=== PATIENT | female | born 1990 | race African-American/Black ===

== ENCOUNTER 2018-05-21 03:42 | Emergency (ER) | payer BC, MEDICAID ==
--- NOTE | 2018-05-21 04:07 | ER Document Report ---
ED GI/ - General Chief Complaint: Vaginal Itching Stated Complaint: VAGINAL ISSUE Time Seen by Provider: 05/21/18 03:59 Primary Care Provider: DALLAS GOLD MD [ACTIVE STAFF] - Follow up as needed Mode of Arrival: Ambulatory Information source: Patient Notes: Patient is a 27-year-old female who presents the emergency department with a vaginal discharge that has been ongoing for approximately 1 week. Patient reports the discharge is a thick white and causes her to itch. Patient reports possible STD exposure. Patient states she tried getting an appointment with her primary but it was going to be another month until they could see her. Patient denies any pelvic or abdominal pain. TRAVEL OUTSIDE OF THE [place] IN LAST 30 DAYS: No - Related Data Allergies/Adverse Reactions: No Known Allergies Allergy (Verified 06/13/15 17:06) Past Medical History - General Information source: Patient - Social History Smoking Status: Never Smoker Frequency of alcohol use: None Drug Abuse: None Family History: Reviewed & Not Pertinent Renal/ Medical History: Reports: Hx Ectopic Past Surgical History: Reports: Hx Gynecologic Surgery - left fallopian tube removed - Immunizations Hx Diphtheria, Pertussis, Tetanus Vaccination: Yes Review of Systems - Review of Systems Constitutional: No symptoms reported EENT: No symptoms reported Cardiovascular: No symptoms reported Respiratory: No symptoms reported Gastrointestinal: No symptoms reported Genitourinary: No symptoms reported Female Genitourinary: Vaginal discharge, Vaginal odor Musculoskeletal: No symptoms reported Skin: No symptoms reported Hematologic/Lymphatic: No symptoms reported Neurological/Psychological: No symptoms reported Physical Exam - Vital signs Vitals: Temp Pulse Resp BP Pulse Ox 99.6 F 73 16 116/73 100 05/21/18 03:43 05/21/18 03:43 05/21/18 03:43 05/21/18 03:43 05/21/18 03:43 - Notes Notes: PHYSICAL EXAMINATION: GENERAL: Well-appearing, well-nourished and in no acute distress. HEAD: Atraumatic, normocephalic. EYES: Pupils equal round and reactive to light, extraocular movements intact, conjunctiva are normal. ENT: Nares patent, oropharynx clear without exudates. Moist mucous membranes. NECK: Normal range of motion, supple without lymphadenopathy LUNGS: Breath sounds clear to auscultation bilaterally and equal. No wheezes rales or rhonchi. HEART: Regular rate and rhythm without murmurs ABDOMEN: Soft, nontender, nondistended abdomen. No guarding, no rebound. No masses appreciated. Female : Normal external genitalia, speculum exam reveals whitish cannon thin vaginal discharge from the cervix. No cervical motion tenderness or adnexal tenderness. Musculoskeletal: Normal range of motion, no pitting or edema. No cyanosis. NEUROLOGICAL: Cranial nerves grossly intact. Normal speech, normal gait. Normal sensory, motor exams PSYCH: Normal mood, normal affect. SKIN: Warm, Dry, normal turgor, no rashes or lesions noted. Course - Re-evaluation Re-evalutation: 3+ bacteria noted on wet mount, positive for trichomonas. Chlamydia and gonorrhea are pending. Patient will be placed on p.o. metronidazole for 7 days. Patient will also be given dose of IM Rocephin and p.o. azithromycin here in the emergency department. Discussed follow-up with health department with patient. Patient verbalizes understanding of same. - Vital Signs Vital signs: Temp Pulse Resp BP Pulse Ox 99.6 F 73 16 116/73 100 05/21/18 03:43 05/21/18 03:43 05/21/18 03:43 05/21/18 03:43 05/21/18 03:43 Discharge - Discharge Clinical Impression: infection, trichomonal Condition: Stable Disposition: HOME, SELF-CARE Additional Instructions: He was treated today for a trichomonas infection. You are also treated prophylactically for both chlamydia and gonorrhea. Please notify any partners that you have to go to the health department for treatment for trichomonas. No unprotected sexual intercourse for 7 days. Prescriptions: Metronidazole [Flagyl 500 mg Tablet] 500 mg PO BID #14 tablet Referrals: DALLAS GOLD MD [ACTIVE STAFF] - Follow up as needed
[2018-05-21] MEDS ORDERED: LIDOCAINE 1% INJ-PF (10 MG/ML) 30 ML SDV IM ONE (04:34)
[2018-05-21] MEDS ORDERED: CEFTRIAXONE INJ 250 MG VIAL IM ONE (04:34)
[2018-05-21] MEDS ORDERED: AZITHROMYCIN 250 MG TABLET PO ONE (04:35)
[2018-05-21 04:49] LABS: BACTERIA (WET MOUNT) 4+ BACTERIA SEEN; RBCS (WET MOUNT) 3+ RBCS SEEN; T.VAGINALIS (WET MOUNT) TRICHOMONAS SEEN; WBCS (WET MOUNT) 3+ WBCS SEEN; YEAST (WET MOUNT) NO YEAST SEEN
[2018-05-21] MEDS ORDERED: METRONIDAZOLE 500 MG TABLET PO ONE (05:34)
[2018-05-21 06:16] LABS: CHLAM PCR NOT DETECTED (NOT DETECT); GON PCR NOT DETECTED (NOT DETECT)
[2018-05-21 06:34] VITALS: BP 108/74
== END 2018-05-21 05:55 | disposition home or self-care (01) ==
LOC: ER 03:42
DX: A59.00 Urogenital trichomoniasis, unspecified (principal)
CPT/HCPCS: 99283; 96372; 87210; 87491; 87591; J3490; J0696

== ENCOUNTER 2018-09-05 04:19 | Emergency (ER) | payer BC ==
[2018-09-05 04:51] VITALS: BP 150/110
== END 2018-09-05 06:02 | disposition left against medical advice (07) ==
LOC: ER 04:19
DX: Z53.21 Procedure and treatment not carried out due to patient leaving prior to being seen by health care provider (principal)

== ENCOUNTER 2018-11-13 08:16 | Emergency (ER) | payer BC ==
--- NOTE | 2018-11-13 09:14 | ER Document Report ---
ED General - General Chief Complaint: Abdominal Cramping Stated Complaint: ABDOMINAL PAIN Time Seen by Provider: 11/13/18 08:48 Primary Care Provider: HERIBERTO LOBO MD [Primary Care Provider] - Follow up in 1 week Mode of Arrival: Ambulatory Information source: Patient Notes: Patient presents to the emergency department with complaints of abdominal pain left lower quad for the past 4 days. Reports she has had bright red blood in her BM 3 times in the past 4 days. Reports the stools were hard. Reports she usually only has a bowel movement once a week. Reports this never happened to her before. Denies history of hemorrhoids. Patient denies pain with void. Denies urinary frequency. Reports vaginal discharge. Does not think she has an STD. Reports last time she had sex was 1 month ago with one partner no protection. Denies fever vomiting diarrhea. TRAVEL OUTSIDE OF THE [place] IN LAST 30 DAYS: No - HPI Onset: Other Onset/Duration: Persistent Quality of pain: Cramping Severity: Moderate Pain Level: 3 Associated symptoms: None Exacerbated by: Denies Relieved by: Denies Similar symptoms previously: No Recently seen / treated by doctor: No - Related Data Allergies/Adverse Reactions: No Known Allergies Allergy (Verified 11/13/18 08:17) Past Medical History - General Information source: Patient Last Menstrual Period: 11/06/18 - Social History Smoking Status: Unknown if Ever Smoked Cigarette use (# per day): No Frequency of alcohol use: None Drug Abuse: None Lives with: Family Family History: Reviewed & Not Pertinent Patient has suicidal ideation: No Patient has homicidal ideation: No Renal/ Medical History: Reports: Hx Ectopic . Denies: Hx Peritoneal Dialysis Past Surgical History: Reports: Hx Gynecologic Surgery - left fallopian tube re moved - Immunizations Hx Diphtheria, Pertussis, Tetanus Vaccination: Yes Review of Systems - Review of Systems Notes: Review HPI for review of systems., All other systems negative Physical Exam - Vital signs Vitals: Temp Pulse Resp BP Pulse Ox 98.4 F 88 16 112/79 100 11/13/18 08:24 11/13/18 08:24 11/13/18 08:24 11/13/18 08:24 11/13/18 08:24 - Notes Notes: PHYSICAL EXAMINATION: GENERAL: Well-appearing and in no acute distress HEAD: Atraumatic, normocephalic. EYES: Pupils equal round , extraocular movements intact, sclera anicteric, conjunctiva are normal. ENT: nares patent, oropharynx clear without exudates. Moist mucous membranes. NECK: Normal range of motion, supple without lymphadenopathy LUNGS: CTAB and equal. No wheezes rales or rhonchi. HEART: Regular rate and rhythm without murmurs ABDOMEN: Soft, no tenderness. No guarding, no rebound EXTREMITIES: Normal range of motion, no pitting edema. NEUROLOGICAL: Cranial nerves grossly intact. Normal sensory/motor exams. PSYCH: Normal mood, normal affect. SKIN: Warm, Dry, normal turgor, no rashes or lesions noted - Rectal Tenderness: Yes Stool: Heme negative Hemorrhoids: External - Genitourinary External exam: Normal Speculum exam: Vaginal discharge - Whitish Vaginal bleeding: None Bimanuel exam: Normal. No: Cervical motion tender, Adnexal tenderness Course - Re-evaluation Re-evalutation: 11/13/18 11:03 Labs unremarkable urine has leukocytes with some WBCs. Patient will be treated for UTI. Wet mount returns with BV. Patient was treated with Flagyl. Patient was instructed on STD cultures pending. She reports she would rather be called with results. She does not want to wait and she does not want prophylactic treatment. 11/13/18 20:11 I attempted to contact patient to notify her of positive chlamydia. Patient has a voicemail that has not been set up and she is not answering. Will attempt to contact patient again tomorrow. 11/13/18 09:53 11/13/18 09:53 MCV 86 fl (80-97) 11/13/18 09:53 MCH 28.9 pg (27.0-33.4) 11/13/18 09:53 MCHC 33.5 g/dL (32.0-36.0) 11/13/18 09:53 RDW 14.6 % (11.5-14.0) H 11/13/18 09:53 Seg Neutrophils % 53.9 % (42-78) 11/13/18 09:53 Lymphocytes % 37.6 % (13-45) 11/13/18 09:53 Monocytes % 6.3 % (3-13) 11/13/18 09:53 Eosinophils % 1.8 % (0-6) 11/13/18 09:53 Basophils % 0.4 % (0-2) 11/13/18 09:53 Absolute Neutrophils 3.1 10^3/uL (1.7-8.2) 11/13/18 09:53 Absolute Lymphocytes 2.2 10^3/uL (0.5-4.7) 11/13/18 09:53 Absolute Monocytes 0.4 10^3/uL (0.1-1.4) 11/13/18 09:53 Absolute Eosinophils 0.1 10^3/uL (0.0-0.6) 11/13/18 09:53 Absolute Basophils 0.0 10^3/uL (0.0-0.2) 11/13/18 09:53 Chloride 107 mmol/L (98-107) 11/13/18 09:53 Carbon Dioxide 27 mmol/L (22-30) 11/13/18 09:53 Anion Gap 9 (5-19) 11/13/18 09:53 Est GFR ( Amer) > 60 (>60) 11/13/18 09:53 Est GFR (Non-Af Amer) > 60 (>60) 11/13/18 09:53 Glucose 105 mg/dL (75-110) 11/13/18 09:53 Calcium 11.6 mg/dL (8.4-10.2) H 11/13/18 09:53 Total Bilirubin 0.4 mg/dL (0.2-1.3) 11/13/18 09:53 AST 24 U/L (14-36) 11/13/18 09:53 ALT 15 U/L (9-52) 11/13/18 09:53 Alkaline Phosphatase 64 U/L (38-126) 11/13/18 09:53 Total Protein 7.7 g/dL (6.3-8.2) 11/13/18 09:53 Albumin 4.4 g/dL (3.5-5.0) 11/13/18 09:53 Serum HCG, Qual NEGATIVE (NEGATIVE) 11/13/18 09:53 Urine Color YELLOW 11/13/18 09:40 Urine Appearance SLIGHTLY-CLOUDY 11/13/18 09:40 Urine pH 5.0 (5.0-9.0) 11/13/18 09:40 Ur Specific [place] 1.017 11/13/18 09:40 Urine Protein NEGATIVE mg/dL (NEGATIVE) 11/13/18 09:40 Urine Glucose (UA) NEGATIVE mg/dL (NEGATIVE) 11/13/18 09:40 Urine Ketones NEGATIVE mg/dL (NEGATIVE) 11/13/18 09:40 Urine Blood SMALL (NEGATIVE) H 11/13/18 09:40 Urine Nitrite NEGATIVE (NEGATIVE) 11/13/18 09:40 Ur Leukocyte Esterase LARGE (NEGATIVE) H 11/13/18 09:40 Urine WBC (Auto) 73 /HPF 11/13/18 09:40 Urine RBC (Auto) 11 /HPF 11/13/18 09:40 11/14/18 09:25 Patient contacted and made aware of positive chlamydia. She requested medication be called into pharmacy. [facility] on [address] contacted azithromycin 1 g p.o. ordered. - Vital Signs Vital signs: Temp Pulse Resp BP Pulse Ox 98.7 F 71 16 104/73 100 11/13/18 11:30 11/13/18 11:30 11/13/18 08:24 11/13/18 11:30 11/13/18 11:30 - Laboratory Result Diagrams: 11/13/18 09:53 11/13/18 09:53 Laboratory results interpreted by me: 11/13/18 11/13/18 11/13/18 09:40 09:40 09:53 Hgb 11.5 L Hct 34.3 L RDW 14.6 H Calcium Urine Blood SMALL H Ur Leukocyte Esterase LARGE H Chlamydia DNA (PCR) DETECTED H 11/13/18 09:53 Hgb Hct RDW Calcium 11.6 H Urine Blood Ur Leukocyte Esterase Chlamydia DNA (PCR) Procedures - Pelvic Exam Pelvic exam Time completed: 09:42 Cultures obtained: Yes Wet prep obtained: Yes Herpes culture obtained: No POC sent to lab: No Foreign body removed: No Bimanual exam performed: Yes Witnessed by: rocael PCT Discharge - Discharge Clinical Impression: Bacterial vaginosis Abdominal pain Qualifiers: Abdominal location: left lower quadrant Qualified Code(s): R10.32 - Left lower quadrant pain UTI (urinary tract infection) Qualifiers: Urinary tract infection type: site unspecified Hematuria presence: with hematuria Qualified Code(s): N39.0 - Urinary tract infection, site not specified Condition: Stable Disposition: HOME, SELF-CARE Instructions: Abdominal Pain ([facility]), Metronidazole ([facility]), Nitrofurantoin ([facility]), [facility], [facility], Urinary Tract Infection ([facility]), Vaginosis, Bacterial ([facility]) Additional Instructions: *You have been evaluated for abdominal pain, bacterial vaginosis, UTI *The STD cultures are pending. Should the results be positive you will be contacted to return for treatment. *Take medication as prescribed *Follow up with a primary care provider/ [facility] or the health department within one week *Avoid intercourse until follow up *Return to ED for worsening condition, changes, needs *Return to ED if not better in 24 hours Prescriptions: Metronidazole [Flagyl 500 mg Tablet] 500 mg PO BID #14 tablet Nitrofurantoin/Nitrofuran Mac [Macrobid 100 mg Capsule] 100 mg PO BID #20 caps ule Referrals: HERIBERTO LOBO MD [Primary Care Provider] - Follow up in 1 week
[2018-11-13 09:53] LABS: BACTERIA (WET MOUNT) 3+ BACTERIA SEEN; EPITHELIALS (WET MOUNT) 3+ EPITHELIALS SEEN; RBCS (WET MOUNT) FEW RBCS SEEN; T.VAGINALIS (WET MOUNT) NO TRICHOMONAS SEEN; WBCS (WET MOUNT) 4+ WBCS SEEN; YEAST (WET MOUNT) NO YEAST SEEN
[2018-11-13 10:07] LABS: APPEARANCE,URINE SLIGHTLY-CLOUDY; BILIRUBIN,URINE NEGATIVE (NEGATIVE); COLOR,URINE YELLOW; GLUCOSE, URINE NEGATIVE (NEGATIVE); KETONES,URINE NEGATIVE (NEGATIVE); LEUKOCYTE ESTERASE,URINE LARGE (NEGATIVE); NITRITE,URINE NEGATIVE (NEGATIVE); PROTEIN,URINE NEGATIVE (NEGATIVE); URINE SPECIFIC GRAVITY 1.017; UROBILINOGEN,URINE NEGATIVE mg/dL (<2.0)
[2018-11-13 10:07] LABS: ABSOLUTE EOSINOPHILS # (AUTO) 0.1 10^3/uL (0.0-0.6); ABSOLUTE LYMPHOCYTES (AUTO) 2.2 10^3/uL (0.5-4.7); ABSOLUTE MONOCYTES (AUTO) 0.4 10^3/uL (0.1-1.4); ABSOLUTE NEUT (AUTO) 3.1 10^3/uL (1.7-8.2); BASOPHILS % (AUTO) 0.4 % (0-2); EOSINOPHILS % (AUTO) 1.8 % (0-6); HEMATOCRIT 34.3 % (36.0-47.0); HEMOGLOBIN 11.5 g/dL (12.0-15.5); LYMPHOCYTES % (AUTO) 37.6 % (13-45); MEAN CORPUSCULAR HEMOGLOBIN 28.9 pg (27.0-33.4); MEAN CORPUSCULAR HGB CONC 33.5 g/dL (32.0-36.0); MEAN CORPUSCULAR VOLUME 86 fl (80-97); MONOCYTES % (AUTO) 6.3 % (3-13); PLATELET COUNT 288 10^3/uL (150-450); RED BLOOD COUNT 3.97 10^6/uL (3.72-5.28); RED CELL DISTRIBUTION WIDTH 14.6 % (11.5-14.0); SEGMENTED NEUTROPHILS % (AUTO) 53.9 % (42-78); TOTAL CELLS COUNTED % (AUTO) 100 %; WHITE BLOOD COUNT 5.7 10^3/uL (4.0-10.5)
[2018-11-13 10:33] LABS: ALANINE AMINOTRANSFERASE 15 U/L (9-52); ALBUMIN 4.4 g/dL (3.5-5.0); ALKALINE PHOSPHATASE 64 U/L (38-126); ANION GAP 9 (5-19); ASPARTATE AMINO TRANSFERASE 24 U/L (14-36); BILIRUBIN,DIRECT 0.2 mg/dL (0.0-0.4); BILIRUBIN,TOTAL 0.4 mg/dL (0.2-1.3); BLOOD UREA NITROGEN 8 mg/dL (7-20); CALCIUM 11.6 mg/dL (8.4-10.2); CARBON DIOXIDE 27 mmol/L (22-30); CHLORIDE 107 mmol/L (98-107); GLUCOSE 105 mg/dL (75-110); POTASSIUM 3.7 mmol/L (3.6-5.0); TOTAL PROTEIN 7.7 g/dL (6.3-8.2)
[2018-11-13 11:20] LABS: CHLAM PCR DETECTED (NOT DETECT)
[2018-11-13 11:33] VITALS: BP 104/73
== END 2018-11-13 11:33 | disposition home or self-care (01) ==
LOC: ER 08:16
DX: N76.0 Acute vaginitis (principal); B96.89 Other specified bacterial agents as the cause of diseases classified elsewhere; N39.0 Urinary tract infection, site not specified; R10.32 Left lower quadrant pain
CPT/HCPCS: 36415; 80053; 81001; 84703; 85025; 87210; 87491; 87591; 99284

== ENCOUNTER 2019-10-06 01:08 | Emergency (ER) | payer BC ==
[2019-10-06] MEDS ORDERED: AMOXICILLIN TRIHYDRATE 500 MG CAPSULE PO ONE (05:08)
--- NOTE | 2019-10-06 05:09 | ER Document Report ---
HPI - HPI Time Seen by Provider: 10/06/19 05:00 Pain Level: 5 Context: Patient is a 29-year-old female that comes emergency department for chief complaint of left upper jaw pain and slight swelling to the face. She has had worsening dental pain for the past 3 days. She has already seen [facility] and was told that she needs to have an extraction, this is already scheduled. She denies history of the same. She denies sore throat, neck pain, fever, or any other complaints. She is 6 weeks . She takes no daily medications, denies any past medical history. - CONSTITUTIONAL Constitutional: DENIES: Fever, Chills - EENT EENT: REPORTS: Ear Pain. DENIES: Sore Throat, Eye problems - NEURO Neurology: DENIES: Headache, Weakness, Vision blurred, Dizzinesss / Vertigo - CARDIOVASCULAR Cardiovascular: DENIES: Chest pain - RESPIRATORY Respiratory: DENIES: Trouble Breathing, Coughing - GASTROINTESTINAL Gastrointestinal: DENIES: Abdominal Pain, Black / Bloody Stools - URINARY Urinary: DENIES: Dysuria, Urgency - REPRODUCTIVE Reproductive: DENIES: : - MUSCULOSKELETAL Musculoskeletal: DENIES: Extremity pain Past Medical History - General Information source: Patient - Social History Smoking Status: Never Smoker Chew tobacco use (# tins/day): No Frequency of alcohol use: None Drug Abuse: None Lives with: Family Family History: Reviewed & Not Pertinent Patient has homicidal ideation: No Renal/ Medical History: Reports: Hx Ectopic . Denies: Hx Peritoneal Dialysis Past Surgical History: Reports: Hx Gynecologic Surgery - left fallopian tube removed - Immunizations Hx Diphtheria, Pertussis, Tetanus Vaccination: Yes Vertical Provider Document - CONSTITUTIONAL General Appearance: WD/WN, No Apparent Distress - INFECTION CONTROL TRAVEL OUTSIDE OF THE [place] IN LAST 30 DAYS: No - HEENT HEENT: Atraumatic, Normocephalic. negative: Normal ENT Exam - There is very minimal questionable swelling to the left side of the face. Normal oropharyngeal exam except for dental exam, see below. Normal nasal, ears, eye exams. Mouth Diagram: 1 - Fractured tooth with surrounding erythema and mild swelling of the gumline. No evidence of abscess, unremarkable oropharyngeal exam otherwise - NECK Neck: Normal Inspection - No submandibular swelling. - RESPIRATORY Respiratory: Breath Sounds Normal, No Respiratory Distress - CARDIOVASCULAR Cardiovascular: Regular Rate, Regular Rhythm - GI/ABDOMEN Gastrointestinal: Abdomen Soft, Abdomen Non-Tender. negative: Abdomen Tender - BACK Back: Normal Inspection - MUSCULOSKELETAL/EXTREMETIES Musculoskeletal/Extremeties: MAEW, FROM, Non-Tender - NEURO Level of Consciousness: Awake, Alert, Appropriate Motor/Sensory: No Motor Deficit, No Sensory Deficit - DERM Integumentary: Warm, Dry, No Rash Course - Re-evaluation Re-evalutation: Patient with evidence of dental infection but no evidence of abscess on my evaluation. She has no complaints in regards to her , abdomen, back. Discussed treatment, follow-up, return precautions. Patient states understanding and agreement. - Vital Signs Vital signs: Temp Pulse Resp BP Pulse Ox 99.8 F 84 132/77 H 98 10/06/19 01:20 10/06/19 01:16 10/06/19 01:16 10/06/19 01:16 Discharge - Discharge Clinical Impression: Pain, dental, Dental infection Condition: Stable Disposition: HOME, SELF-CARE Additional Instructions: Your evaluation is consistent with a dental infection. Take antibiotics as prescribed to completion. You can take 1000 mg of Tylenol every 6 hours, you can also take 25 to 50 mg of Benadryl to help you sleep. Follow closely with the dentist for additional management or this will continue to happen. Return for any concerning or worsening symptoms including increased swelling of the face. Prescriptions: Amoxicillin Trihydrate [Amoxil 500 mg Capsule] 500 mg PO BID 10 Days #20 capsule
[2019-10-06 05:40] VITALS: BP 136/72
== END 2019-10-06 05:40 | disposition home or self-care (01) ==
LOC: ER 01:08
DX: K04.7 Periapical abscess without sinus (principal); K08.89 Other specified disorders of teeth and supporting structures; H92.09 Otalgia, unspecified ear
CPT/HCPCS: 99282

== ENCOUNTER 2019-12-13 08:21 | Emergency (ER) | payer BC ==
[2019-12-13] MEDS ORDERED: CLINDAMYCIN HCL 150 MG CAPSULE PO ONE (10:56)
[2019-12-13] MEDS ORDERED: ACETAMINOPHEN 325 MG TABLET PO ONE (10:56)
--- NOTE | 2019-12-13 10:57 | ER Document Report ---
HPI - HPI Patient complains to provider of: Abscess Time Seen by Provider: 12/13/19 10:52 Onset: Last week Onset/Duration: Worse Quality of pain: Achy Pain Level: 4 Context: Patient presents complaining of insect bite that got infected to the left lower extremity. Patient denies any fever. Patient denies any history of MRSA. Patient is currently 15 weeks . Associated Symptoms: Other - Insect bite to left leg. denies: Fever Exacerbated by: Movement Relieved by: Denies Similar symptoms previously: No Recently seen / treated by doctor: No - ROS ROS below otherwise negative: Yes Systems Reviewed and Negative: Yes All other systems reviewed and negative - CONSTITUTIONAL Constitutional: DENIES: Fever, Chills - GASTROINTESTINAL Gastrointestinal: DENIES: Nausea, Patient vomiting - REPRODUCTIVE LMP: 08/24/19 Reproductive: REPORTS: : - MUSCULOSKELETAL Musculoskeletal: REPORTS: Extremity pain - DERM Skin Color: Erythema Notes: Abscess to left leg Past Medical History - General Information source: Patient - Social History Smoking Status: Never Smoker Chew tobacco use (# tins/day): No Frequency of alcohol use: None Drug Abuse: None Occupation: [employer] Lives with: Family Family History: Reviewed & Not Pertinent Renal/ Medical History: Reports: Hx Ectopic . Denies: Hx Peritoneal Dialysis Past Surgical History: Reports: Hx Gynecologic Surgery - left fallopian tube removed - Immunizations Hx Diphtheria, Pertussis, Tetanus Vaccination: Yes Vertical Provider Document - CONSTITUTIONAL Agree With Documented VS: Yes Exam Limitations: No Limitations General Appearance: WD/WN, No Apparent Distress - INFECTION CONTROL TRAVEL OUTSIDE OF THE [place] IN LAST 30 DAYS: No - HEENT HEENT: Atraumatic, Normocephalic - NECK Neck: Normal Inspection, Supple. negative: Lymphadenopathy-Left, Lymphadenopathy-Right - RESPIRATORY Respiratory: Breath Sounds Normal, No Respiratory Distress - CARDIOVASCULAR Cardiovascular: Regular Rate, Regular Rhythm - MUSCULOSKELETAL/EXTREMETIES Musculoskeletal/Extremeties: SCOTT FROM - NEURO Level of Consciousness: Awake, Alert, Appropriate Motor/Sensory: No Motor Deficit - DERM Integumentary: Warm, Dry, Abscess - Abscess to the lateral aspect of the distal third of her left lower extremity Course - Vital Signs Vital signs: Temp Pulse Resp BP Pulse Ox 98.1 F 88 16 119/68 100 12/13/19 09:07 12/13/19 08:24 12/13/19 08:24 12/13/19 08:24 12/13/19 08:24 Procedures - Incision and Drainage Left Leg Type: Simple Anesthetic type: 1% Lidocaine Blade size: 11 I&D procedure: Betadine prep applied Incision Method: Incision made by scalpel Amount/type of drainage: Moderate amount of purulent drainage Adult Front & Back picture: 1 - Abscess Discharge - Discharge Clinical Impression: Abscess, Encounter for incision and drainage procedure Condition: Stable Disposition: HOME, SELF-CARE Instructions: Abscess ([facility]), Clindamycin ([facility]), Post Incision and Drainage Additional Instructions: Return immediately for any new or worsening symptoms Followup with your primary care provider, call tomorrow to make a followup appointment Prescriptions: Clindamycin HCl 300 mg PO QID #28 capsule Referrals: ДМИТРИЙ HU MD [Primary Care Provider] - Follow up as needed
[2019-12-13 12:37] VITALS: BP 122/64
== END 2019-12-13 11:30 | disposition home or self-care (01) ==
LOC: ER 08:21
PROC: 0H9LXZZ Drainage of Left Lower Leg Skin, External Approach (ICD-10-PCS; principal; 2019-12-13)
DX: L02.416 Cutaneous abscess of left lower limb (principal)
CPT/HCPCS: 99283

== ENCOUNTER 2020-02-11 15:20 | Outpatient (CLI) | payer BC ==
[2020-02-11 16:01] LABS: ABSOLUTE EOSINOPHILS # (AUTO) 0.1 10^3/uL (0.0-0.6); ABSOLUTE LYMPHOCYTES (AUTO) 2.2 10^3/uL (0.5-4.7); ABSOLUTE MONOCYTES (AUTO) 0.8 10^3/uL (0.1-1.4); ABSOLUTE NEUT (AUTO) 4.7 10^3/uL (1.7-8.2); BASOPHILS % (AUTO) 0.4 % (0-2); EOSINOPHILS % (AUTO) 0.9 % (0-6); HEMATOCRIT 30.7 % (36.0-47.0); HEMOGLOBIN 10.3 g/dL (12.0-15.5); LYMPHOCYTES % (AUTO) 27.9 % (13-45); MEAN CORPUSCULAR HEMOGLOBIN 28.4 pg (27.0-33.4); MEAN CORPUSCULAR HGB CONC 33.5 g/dL (32.0-36.0); MEAN CORPUSCULAR VOLUME 85 fl (80-97); MONOCYTES % (AUTO) 10.5 % (3-13); PLATELET COUNT 161 10^3/uL (150-450); RED BLOOD COUNT 3.63 10^6/uL (3.72-5.28); RED CELL DISTRIBUTION WIDTH 15.1 % (11.5-14.0); SEGMENTED NEUTROPHILS % (AUTO) 60.3 % (42-78); TOTAL CELLS COUNTED % (AUTO) 100 %; WHITE BLOOD COUNT 7.7 10^3/uL (4.0-10.5)
[2020-02-11] MEDS ORDERED: HYDRALAZINE HCL INJ/PF 20 MG/1 ML SDV ONE (16:11)
[2020-02-11] MEDS ORDERED: MAGNESIUM SULFATE 4 GM/100 ML RTUPB IV ONE ×2 (16:11→16:16)
[2020-02-11] MEDS ORDERED: MAGNESIUM SULFATE 20 GM/500 ML RTUINJ IV ONE (16:11)
[2020-02-11] MEDS ORDERED: MAGNESIUM SULFATE 20 GM/500 ML RTUINJ IV PRN (16:16)
[2020-02-11] MEDS ORDERED: HYDRALAZINE HCL INJ/PF 20 MG/1 ML SDV IV ONE (16:18)
[2020-02-11] MEDS ORDERED: BETAMET ACET/BETAMET NA INJ 6 MG/1 ML IM SCH (16:19)
[2020-02-11 16:20] LABS: APPEARANCE,URINE SLIGHTLY-CLOUDY; BILIRUBIN,URINE NEGATIVE (NEGATIVE); COLOR,URINE YELLOW; GLUCOSE, URINE NEGATIVE (NEGATIVE); KETONES,URINE NEGATIVE (NEGATIVE); LEUKOCYTE ESTERASE,URINE NEGATIVE (NEGATIVE); NITRITE,URINE NEGATIVE (NEGATIVE); PROTEIN,URINE >=500 mg/dL (NEGATIVE); URINE SPECIFIC GRAVITY 1.017; UROBILINOGEN,URINE NEGATIVE mg/dL (<2.0)
[2020-02-11 16:23] LABS: ALBUMIN 3.3 g/dL (3.5-5.0); ALKALINE PHOSPHATASE 125 U/L (38-126); ANION GAP 7 (5-19); ASPARTATE AMINO TRANSFERASE 39 U/L (14-36); BILIRUBIN,DIRECT 0.2 mg/dL (0.0-0.4); BILIRUBIN,TOTAL 0.4 mg/dL (0.2-1.3); BLOOD UREA NITROGEN 10 mg/dL (7-20); CALCIUM 10.6 mg/dL (8.4-10.2); CARBON DIOXIDE 21 mmol/L (22-30); CHLORIDE 107 mmol/L (98-107); GLUCOSE 85 mg/dL (75-110); POTASSIUM 4.2 mmol/L (3.6-5.0); TOTAL PROTEIN 6.4 g/dL (6.3-8.2)
[2020-02-11 16:32] LABS: URINE CREATININE 96.5 mg/dL (16-327)
[2020-02-11] MEDS ORDERED: BETAMET ACET/BETAMET NA INJ 6 MG/1 ML ONE (16:36)
[2020-02-11 16:41] LABS: URINE AMPHETAMINES SCREEN NEGATIVE; URINE BARBITURATES SCREEN NEGATIVE; URINE BENZODIAZEPINES SCREEN NEGATIVE; URINE COCAINE SCREEN NEGATIVE; URINE MARIJUANA (THC) SCREEN NEGATIVE; URINE METHADONE SCREEN NEGATIVE; URINE PHENCYCLIDINE SCREEN NEGATIVE
--- NOTE | 2020-02-11 16:53 | PDOC TRANSFER SUMMARY ---
General Admission Date/PCP: ДМИТРИЙ HU MD Admission Date: 02/11/20 Transfer Date: 02/11/20 Accepting Facility: [facility] Accepting Physician: Dr Tejeda Resuscitation Status: Full Code - Transfer Diagnosis (1) Is this a current diagnosis for this admission?: Yes (2) Pre-eclampsia affecting , antepartum Is this a current diagnosis for this admission?: Yes - Transfer Medications Home Medications: Acetaminophen [Tylenol 325 mg Tablet] 1,000 mg PO PRN PRN 02/11/20 Vitamin [-U Multiple Vitamin Capsule] 1 cap PO DAILY 02/11/20 Transfer Medications: Current Medications Betamethasone Acet/Betameth SodPhos ([place] Inj 6 Mg/1 Ml) 12 mg IM Q12 ANA LAURA Stop: 03/12/20 16:18 Magnesium Sulfate (Magnesium Sulfate Rtu 4 Gm/100 Ml Premix Bag) 4 gm in 100 mls @ 200 mls/hr IV NOW ONE Stop: 02/11/20 16:45 Magnesium Sulfate (Magnesium Sulfate Rtu 20 Gm/500 Ml Premix) 20 gm in 500 mls @ 50 mls/hr IV CONTINUOUS PRN PRN Reason: THIS MED IS NOT "PRN" Stop: 03/12/20 16:15 - Allergies Allergies/Adverse Reactions: No Known Allergies Allergy (Verified 02/11/20 15:35) Hospital Course Hospital Course: patient is a 29 yo @ 24 5/7 wks sent from office for severe range blood pressures. Pt indicates she left work with concerns of lower extremity edema and a headache. She has +2 aedma on exam today as well as periorbital edema. She denies vision changes or RUQ pain/nausea/vomiting. She denies a history of preE in her previous pregnancies but does indicate this is with a d ifferent FOB. She denies any pre-existing medical comorbidities and surgical history of a left salpingectomy for an ectopic . Blood pressures at the office today were 180s-190s/110s. She presented to L&D with similar pressures. Magnesium Sulfate/betamethasone and pre-eclampsia labs were begun. I contacted [facility] for emergent transfer based on the patient's condition and potential worsening at EGA not appropriate for our Level [address] Tejeda accepted patient. Physical Exam Vital Signs: Intake & Output 02/10/20 02/11/20 02/12/20 06:59 06:59 06:59 Weight 76.2 kg General appearance: PRESENT: no acute distress, cooperative Eye exam: PRESENT: periorbital swelling Extremities exam: PRESENT: pedal edema, +2 edema - DTRs +3-+4 Results Laboratory Results: 02/11/20 15:31 02/11/20 15:31 02/11/20 02/11/20 02/11/20 15:31 15:31 15:37 WBC 7.7 RBC 3.63 L Hgb 10.3 L Hct 30.7 L MCV 85 MCH 28.4 MCHC 33.5 RDW 15.1 H Plt Count 161 Seg Neutrophils % 60.3 Sodium 135.3 L Potassium 4.2 Chloride 107 Carbon Dioxide 21 L Anion Gap 7 BUN 10 Creatinine 0.74 Est GFR ( Amer) > 60 Glucose 85 Calcium 10.6 H Total Bilirubin 0.4 AST 39 H Alkaline Phosphatase 125 Total Protein 6.4 Albumin 3.3 L Urine Color YELLOW Urine Appearance SLIGHTLY-CLOUDY Urine pH 7.0 Ur Specific [place] 1.017 Urine Protein >=500 H Urine Glucose (UA) NEGATIVE Urine Ketones NEGATIVE Urine Blood NEGATIVE Urine Nitrite NEGATIVE Ur Leukocyte Esterase NEGATIVE Urine WBC (Auto) 4 Urine RBC (Auto) 2 Plan Discharge Plan: see above for transfer information. Patient going by air. Time Spent: Greater than 30 Minutes
[2020-02-11 18:21] LABS: UR PRO/CREAT RATIO RESULT 6.7 mg/mg (0.0-0.2); URINE PROTEIN 650.2 mg/dL (<12)
== END 2020-02-11 17:29 | disposition short-term general hospital (02) ==
LOC: LC 15:20
PROVIDERS: ATTEND Obstetrics & Gynecology
DX: O14.12 Severe pre-eclampsia, second trimester (principal); Z3A.24 24 weeks gestation of pregnancy; Z02.83 Encounter for blood-alcohol and blood-drug test
CPT/HCPCS: 59899; 36415; 83615; 84156; 82570; 85025; 80053; 81001; 80307; J3475 ×2; J0360; J0702; 96372